=== PATIENT | female | born 1980 | race Hispanic/Latino ===

== ENCOUNTER 2018-02-24 10:20 | Emergency (ER) | payer OTHER ==
[2018-02-24 10:29] VITALS: BMI 25.8
[2018-02-24 10:41] VITALS: RESP 18; TEMP 98.5; O2SAT 97
[2018-02-24 12:48] VITALS: BP 118/78; PULSE 68
--- NOTE | 2018-02-24 12:58 | ED PDOC ---
Arrival/HPI - General Chief Complaint: Lower Extremity Problem/Injury Time Seen by Provider: 02/24/18 10:45 Historian: Patient - History of Present Illness Narrative History of Present Illness (Text): 02/24/18 14:24 37yr old female presents today with right calf pain. pt states she recently started running again and last week developed pain in the right calf which was minimal and she associated it with muscle strain. pt states slowly the pain has increased in the calf. pt states she has been continuing to run and has noticed the pain just continues to increase. pt states while running today she developed severe pain in the calf. pt denies numbness, weakness, tingling in the extremity. pt states she can fully move the ankle but noticed swelling in the ankle. pt denies fever/chills. pt states she does not have any pain over the achilles tendon. pt has not taken medications for pain. pt states pain is worse with ambulation. pt states she is able to fully dorsiflex and plantar flex the foot with slight pain. pt denies radiation of pain. Pt states the pain is located only in the right calf. Past Medical History - Provider Review Nursing Documentation Reviewed: Yes - Travel History Have you recently traveled outside [place] w/in the past 3 mons?: No - Tetanus Immunization Tetanus Immunization: Unknown - Cardiac Hx Cardiac Disorders: No - Pulmonary Hx Respiratory Disorders: No - Neurological Hx Neurological Disorder: No - HEENT Hx HEENT Disorder: No - Renal Hx Renal Disorder: No - Endocrine/Metabolic Hx Endocrine Disorders: No - Hematological/Oncological Hx Blood Disorders: No - Integumentary Hx Dermatological Disorder: No - Musculoskeletal/Rheumatological Hx Musculoskeletal Disorders: No - Psychiatric Hx Psychophysiologic Disorder: Yes Hx Depression: Yes Hx Substance Use: No - Surgical History Hx Musculoskeletal Surgery: Yes - Anesthesia Hx Anesthesia: Yes Hx Anesthesia Reactions: No Hx Malignant Hyperthermia: No Family/Social History - Physician Review Nursing Documentation Reviewed: Yes Family/Social History: Unknown Family HX Smoking Status: Never Smoked Hx Alcohol Use: Yes Frequency of alcohol use: Socially Hx Substance Use: No Allergies/Home Meds Allergies/Adverse Reactions: Allergies No Known Allergies Allergy (Verified 02/24/18 10:29) Home Medications: Home Meds Medication Instructions Recorded Confirmed PARoxetine [Paxil] 20 mg PO DAILY 02/24/18 02/24/18 Review of Systems - Review of Systems Constitutional: absent: Fatigue, Fevers Respiratory: absent: SOB, Cough Cardiovascular: absent: Chest Pain, Palpitations Gastrointestinal: absent: Abdominal Pain, Nausea, Vomiting Musculoskeletal: Arthralgias. absent: Back Pain, Neck Pain Skin: absent: Rash, Pruritis Neurological: absent: Headache, Dizziness Psychiatric: absent: Anxiety, Depression Physical Exam Vital Signs Reviewed: Yes Vital Signs Temp Pulse Resp BP Pulse Ox 02/24/18 12:48 68 18 118/78 97 02/24/18 10:30 98.5 F 75 18 120/87 97 Temperature: Afebrile Blood Pressure: Normal Pulse: Regular Respiratory Rate: Normal Appearance: Positive for: Well-Appearing, Non-Toxic, Comfortable Pain Distress: None Mental Status: Positive for: Alert and Oriented X 3 - Systems Exam Head: Present: Atraumatic Mouth: Present: Moist Mucous Membranes Neck: Present: Normal Range of Motion Respiratory/Chest: Present: Clear to Auscultation, Good Air Exchange. No: Respiratory Distress, Accessory Muscle Use Cardiovascular: Present: Regular Rate and Rhythm, Normal S1, S2. No: Murmurs Lower Extremity: Present: CALF TENDERNESS, NORMAL PULSES, Normal ROM, Tenderness, Swelling, Neurovascularly Intact, Capillary Refill < 2 s, Other (carter test NEGATIVE. ). No: Erythema, Deformity, Temperature Abnormalties Neurological: Present: GCS=15, Speech Normal Skin: Present: Warm, Dry, Normal Color. No: Rashes Psychiatric: Present: Alert, Oriented x 3 Medical Decision Making ED Course and Treatment: 02/24/18 14:31 Patient is nontoxic well-appearing in no distress with stable vital signs lungs are clear to auscultation bilaterally. Venous duplex of the lower extremities; no DVT verbal report by hospital technician xray right ankle; no fracture toradol given for pain. all wrap and crutches applied. Patient reassessment; patient is nontoxic well-appearing in no distress with stable vital signs pt with calf pain with negative carter test, no achilles tendon tenderness, no achilles tendon void with full rom of ankle;no calf swelling. no ankle tenderness; no erythema or edema. advised patient that partial achilles tendon injury is still possible and she should f/u with orthopedist [facility] for further evaluation and avoid exercise until cleared. I discussed the results with patient about followup with the orthopedist within the next 2 days. I've advised return if symptoms worsen persist or if there's concerning symptoms develop. Patient verbalizes understanding of discharge instructions and need for immediate followup. all aspects of this case were discussed the attending of record. Impression: Leg pain Motrin every 6 hours as needed for pain Followup primary care physician within the next 2 days Follow up with the orthopedist within the next 2 days Return if symptoms worsen persist or if new symptoms develop - RAD Interpretation Radiology Orders: 02/24/18 11:21 ANKLE RIGHT 3 VIEWS ROUTINE [RAD] Stat DUPLEX LOWER EXTRM VEIN RIGHT [US] Stat Disposition/Present on Arrival - Present on Arrival Any Indicators Present on Arrival: No History of DVT/PE: No History of Uncontrolled Diabetes: No Urinary Catheter: No History of Decub. Ulcer: No History Surgical Site Infection Following: None - Disposition Have Diagnosis and Disposition been Completed?: Yes Diagnosis: Leg pain Disposition: HOME/ ROUTINE Disposition Time: 12:00 Patient Plan: Discharge Condition: GOOD Discharge Instructions (ExitCare): Muscle and Bone Pain (DC) Additional Instructions: Motrin every 6 hours as needed for pain Use crutches for ambulation Followup primary care physician within the next 2 days Follow up with the orthopedist within the next 2 days Return if symptoms worsen persist or if new symptoms develop Prescriptions: Ibuprofen [Motrin] 600 mg PO Q6H PRN #20 tab PRN Reason: pain/fever reduction Referrals: Rosalio Worley MD [Primary Care Provider] - Follow up with primary Sharon Juarez MD [Staff Provider] - Follow up with primary Forms: [facility] (Greek), WORK NOTE
--- NOTE | 2018-02-24 14:09 | RAD ---
Date of service: 02/24/2018 PROCEDURE: Right Ankle Radiographs. HISTORY: ankle swelling COMPARISON: None FINDINGS: BONES: Normal. No fracture. JOINTS: Normal. No osteoarthritis. Ankle mortise maintained. Talar dome intact SOFT TISSUES: Mild soft tissue swelling primarily posteriorly OTHER FINDINGS: None. IMPRESSION: Soft tissue swelling without acute articular or osseous abnormality.
--- NOTE | 2018-02-24 15:11 | US ---
PROCEDURE: Right lower extremity venous US HISTORY: Leg pain and swelling. Evaluate for DVT. PHYSICIAN(S): Lon Cesar M.D. TECHNIQUE: Duplex sonography and color-flow Doppler with graded compression were used to evaluate the deep venous system of the right lower extremity. FINDINGS: The visualized deep venous system of the right lower extremity is sonographically normal and compressible. Normal waveforms and augmentation are seen. There is no sonographic evidence for deep venous thrombosis in the visualized segments of the right lower extremity. IMPRESSION: 1. No sonographic evidence for deep venous thrombosis in the visualized segments of the right lower extremity.
== END 2018-02-24 13:24 | disposition home or self-care (01) ==
LOC: ED 10:20
DX: M79.604 Pain in right leg (principal)
CPT/HCPCS: 73610; 93971; 96372; 99284; J1885